=== PATIENT | female | born 1980 ===

== ENCOUNTER 2025-02-14 11:30 | Inpatient (IN) | payer OTHER ==
[~2025-02-14] VITALS: Ht 149.9 cm; Wt 65.8 kg
[2025-02-14 13:02] VITALS: BP 100/70
[2025-02-14] MEDS ORDERED: TREXALL5 MG PO (13:04)
[2025-02-14] MEDS ORDERED: FOLIC ACID20 MG PO (13:05)
[2025-02-14] MEDS ORDERED: PROBIOTIC1 EAC2 PO (13:05)
[2025-02-14 15:13] LABS: RH POSITIVE
[2025-02-20] MEDS ORDERED: CEFAZOLIN SODIUM 1,000 MG VIAL ONE ×2 (07:30→12:41)
[2025-02-20] MEDS ORDERED: POVIDONE-IODINE 118 ML BOTT TOP ONE (08:53)
[2025-02-20] MEDS ORDERED: HEMOSTATIC MATRIX 1 KIT KIT TOP ONE (10:39)
[2025-02-20] MEDS ORDERED: SURGIFLO APPLICATOR 1 EACH APPL TOP ONE (10:40)
[2025-02-20] MEDS ORDERED: MORPHINE SULFATE 4 MG/ML VIAL IV PRN (11:15)
[2025-02-20] MEDS ORDERED: ONDANSETRON HCL 2 MG/ML VIAL IV PRN (11:15)
[2025-02-20] MEDS ORDERED: RINGERS SOLUTION,LACTATED 1,000 ML IV SCH (11:15)
[2025-02-20] MEDS ORDERED: MORPHINE SULFATE 4 MG,MORPHINE SULFATE 2 MG IV PRN (11:30)
[2025-02-20] MEDS ORDERED: CEFAZOLIN SODIUM 1,000 MG VIAL IV SCH (12:00)
[2025-02-20 14:28] VITALS: BP 101/67; O2SAT 99
[2025-02-20 15:40] LABS: BASO % 0.2 % (0.1-1.2); HEMATOCRIT 32.1 % (34.1-44.9); HEMOGLOBIN 10.2 g/dL (11.2-15.7); LYMPH # 0.67 (1.18-3.74); LYMPH % 4.4 % (19.3-53.1); MEAN CORPUSCULAR HEMOGLOBIN 26.8 pg (25.6-32.2); MONO # 0.55 (0.24-0.82); MONO % 3.6 % (4.7-12.5); NEUT # 13.87 (1.56-6.13); NEUT % 91.3 % (34.0-71.1); PLATELET COUNT 321 K/uL (163-369); RED CELL DISTRIBUTION WIDTH 14.5 % (11.6-14.4)
[2025-02-20 15:51] VITALS: BP 120/78
[2025-02-21 01:54] VITALS: BP 100/64
[2025-02-21] MEDS ORDERED: POLYETHYLENE GLYCOL 3350 17 GM BLIST.PACK PO SCH (06:59)
[2025-02-21 08:00] VITALS: BP 93/63
[2025-02-21] MEDS ORDERED: IBUprofen 800 MG TABLET PO SCH (08:00)
[2025-02-21] MEDS ORDERED: ENOXAPARIN SODIUM 40 MG/0.4 ML SYRINGE SUBCUTANEO SCH (09:00)
[2025-02-21] MEDS ORDERED: GABAPENTIN 300 MG CAPSULE PO SCH (09:00)
[2025-02-21] MEDS ORDERED: SIMETHICONE 125 MG CAPSULE PO SCH (09:00)
[2025-02-21 10:23] LABS: BASO % 0.3 % (0.1-1.2); EOS # 0.01 (0.04-0.54); EOS % 0.1 % (0.7-7.0); HEMATOCRIT 29.2 % (34.1-44.9); HEMOGLOBIN 9.2 g/dL (11.2-15.7); LYMPH # 1.46 (1.18-3.74); LYMPH % 12.9 % (19.3-53.1); MEAN CORPUSCULAR HEMOGLOBIN 26.8 pg (25.6-32.2); MONO # 0.87 (0.24-0.82); MONO % 7.7 % (4.7-12.5); NEUT # 8.88 (1.56-6.13); NEUT % 78.6 % (34.0-71.1); PLATELET COUNT 302 K/uL (163-369); RED BLOOD COUNT 3.43 M/uL (3.93-5.22); RED CELL DISTRIBUTION WIDTH 14.8 % (11.6-14.4)
[2025-02-21 10:32] LABS: PH,URINE 6.5 (5.0-8.0); URINE APPEARANCE Clear; URINE BILIRRUBIN Negative (NEGATIVE); URINE BLOOD Moderate; URINE COLOR Yellow; URINE GLUCOSE Negative (NEGATIVE); URINE KETONE Negative (NEGATIVE); URINE LEUKOCYTE Negative; URINE NITRATE Negative; URINE PROTEIN Negative (NEGATIVE); URINE UROBILINOGEN 0.2 E.U./dl
[2025-02-21 10:36] LABS: URINE BACTERIA 6.1 uL (0.0-1933); URINE EPITHELIAL CELLS 2.5 uL (0.0-38.8); URINE RBC 61.3 uL (0.0-20.8); URINE WBC 6.6 uL (0.0-23.2)
[2025-02-21 11:14] LABS: ALBUMIN 2.9 gm/dL (3.4-5.0); BILIRUBIN TOTAL 0.44 mg/dL (0.3-1.2); CALCIUM 8.5 mg/dL (8.5-10.1); CREATININE SERUM 0.74 mg/dL (0.55-1.02); GFR 84.87; GLOBULINA 3.4 G/DL (2.4-3.5); POTASSIUM 3.74 mEq/L (3.5-5.1); TOTAL PROTEIN 6.3 gm/dL (6.4-8.2)
[2025-02-21 14:08] LABS: BASO % 0.3 % (0.1-1.2); EOS # 0.02 (0.04-0.54); EOS % 0.2 % (0.7-7.0); HEMATOCRIT 28.7 % (34.1-44.9); HEMOGLOBIN 9.1 g/dL (11.2-15.7); LYMPH # 1.45 (1.18-3.74); LYMPH % 12.5 % (19.3-53.1); MONO # 0.84 (0.24-0.82); MONO % 7.2 % (4.7-12.5); NEUT # 9.22 (1.56-6.13); NEUT % 79.5 % (34.0-71.1); PLATELET COUNT 295 K/uL (163-369); RED BLOOD COUNT 3.37 M/uL (3.93-5.22); RED CELL DISTRIBUTION WIDTH 14.8 % (11.6-14.4)
[2025-02-21 16:06] VITALS: BP 123/83
[2025-02-22 01:27] VITALS: BP 100/65
[2025-02-22] MEDS ORDERED: GABAPENTIN300 MG PO (07:14)
[2025-02-22] MEDS ORDERED: IBUPROFEN800 MG PO (07:15)
[2025-02-22] MEDS ORDERED: MAXFE CAPLET1 EAC1 PO (07:16)
[2025-02-22 08:26] VITALS: BP 108/70
== END 2025-02-22 10:02 | disposition home or self-care (01) | DRG 743 ==
LOC: OB/GYN 02-20 06:36 → O/R 02-20 06:36 → SURH 02-20 07:00 → OB/GYN 02-20 13:36
PROVIDERS: Obstetrics & Gynecology; ADMIT Obstetrics & Gynecology Gynecology; ATTEND Obstetrics & Gynecology Gynecology
PROC: 0UT74ZZ Resection of Bilateral Fallopian Tubes, Percutaneous Endoscopic Approach (ICD-10-PCS; 2025-02-20)
PROC: 0UT94ZZ Resection of Uterus, Percutaneous Endoscopic Approach (ICD-10-PCS; principal; 2025-02-20 07:00)
DX: N92.1 Excessive and frequent menstruation with irregular cycle (principal); R10.2 Pelvic and perineal pain

== ENCOUNTER 2025-03-08 11:13 | Outpatient (CLI) | payer OTHER ==
[~2025-03-08 11:13] MED LIST: FOLIC ACID20 MG PO; GABAPENTIN300 MG PO; IBUPROFEN800 MG PO; MAXFE CAPLET1 EAC1 PO; PROBIOTIC1 EAC2 PO; TREXALL5 MG PO
== END 2025-03-08 11:15 | disposition home or self-care (01) ==
LOC: TOM 11:13
PROVIDERS: ATTEND Obstetrics & Gynecology Gynecology
DX: N82.0 Vesicovaginal fistula (principal)

== ENCOUNTER 2025-07-12 08:58 | Outpatient (CLI) | payer OTHER | END 2025-07-12 09:02 | disposition home or self-care (01) | LOC: SONOGRAMA 08:58 | PROVIDERS: ATTEND Urology | DX: N82.0 Vesicovaginal fistula (principal); R31.1 Benign essential microscopic hematuria ==